=== PATIENT | female | born 2000 | race African-American/Black ===

== ENCOUNTER 2020-12-22 09:00 | Emergency (ER) | payer OTHER ==
[2020-12-22 09:45] VITALS: BP 111/70; PULSE 84; TEMP 99.1; BMI 23.3
[2020-12-22] MEDS ORDERED: ACETAMINOPHEN 500 MG TABLET (FP) PO ONE (11:24)
[2020-12-22] MEDS ORDERED: ACETAMINOPHEN 500 MG TABLET (FP) ONE (11:43)
== END 2020-12-22 12:10 | disposition home or self-care (01) ==
LOC: FER 09:00
DX: S99.921A Unspecified injury of right foot, initial encounter (principal); V03.90XA Pedestrian on foot injured in collision with car, pick-up truck or van, unspecified whether traffic or nontraffic accident, initial encounter
CPT/HCPCS: 73610-TC-RT-FY; 73630-TC-RT-FY; 99283-25